=== PATIENT | female | born 1985 | race Caucasian/White ===

== ENCOUNTER → 2019-04-03 | Outpatient (CLI) | payer OTHER ==
--- NOTE | 2019-04-03 08:51 | RADIOLOGY REPORT (SQ) ---
EXAM DESCRIPTION: CT LT UPPER EXTREMITY WITHOUT COMPLETED DATE/TIME: 04/03/2019 7:57 am REASON FOR STUDY: NONDISPLACED FX OF SHAFT OF LEFT CLAVICLE (S42.025K) S42.025K NONDISP FX OF SHAFT OF LEFT CLAVICLE, SUBS FOR FX W COMPARISON: None. TECHNIQUE: Axial imaging performed through the leftshoulder with reformatted oblique coronal and obl ique sagittal imaging windowed for bone and soft tissues. Additional 3D post processing was performed on an independent workstation shaded surface display imag es of the left shoulder. All CT scanners at this facility use dose modulation, iterative reconstruction, and/or weight based d osing when appropriate to reduce radiation dose to as low as reasonably achievable (ALARA). [facility]: Dose Right [facility]: CareDose [facility]: Dose Right [facility]: Teradose 4D [facility]: [place] RADIATION DOSE: CT Rad equipment meets quality standard of care and radiation dose reduction techniq ues were employed. CTDIvol: 4.6 mGy. DLP: 103 mGy-cm. mGy. LIMITATIONS: None. FINDINGS: Persistent nonunited distal left clavicle fracture, with pseudoarthrosis. This is best sh own on axial image 13 and shaded surface display images. This is nondisplaced nonangulated and simil ar compared to 12/17/2018. The coracoclavicular interval and acromioclavicular joint are intact. Normal thickness of the rotator cuff. No gross left shoulder joint effusion. Left upper ribs, scapula, proximal humerus are intact. 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
== END ==
LOC: RAD 07:30
PROVIDERS: ATTEND Physician Assistant
DX: S42.025K Nondisplaced fracture of shaft of left clavicle, subsequent encounter for fracture with nonunion (principal); X58.XXXD Exposure to other specified factors, subsequent encounter